=== PATIENT | female | born 1935 | race Caucasian/White ===

== ENCOUNTER 2019-01-01 13:50 | Emergency (ER) | payer OTHER, MEDICARE ==
[2019-01-01 13:56] VITALS: TEMP 97.5; BMI 21.6
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
[2019-01-01 18:28] VITALS: BP 120/70; PULSE 53
== END 2019-01-01 18:29 | disposition home or self-care (01) ==
LOC: FER 13:50
DX: R51 Headache (principal); I48.91 Unspecified atrial fibrillation; Z79.01 Long term (current) use of anticoagulants; Z87.891 Personal history of nicotine dependence
CPT/HCPCS: 70551-TC; 99282-25

== ENCOUNTER 2020-05-01 19:59 | Emergency (ER) | payer OTHER, MEDICARE ==
[2020-05-01 20:20] VITALS: BP 159/88; PULSE 57; TEMP 97.5; BMI 22.2
[2020-05-01] MEDS ORDERED: CEPHALEXIN MONOHYDRATE 500 MG CAPSULE (UD) PO ONE (22:19)
[2020-05-01] MEDS ORDERED: CEPHALEXIN MONOHYDRATE 500 MG CAPSULE (UD) ONE (22:31)
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
== END 2020-05-01 22:41 | disposition home or self-care (01) ==
LOC: FER 19:59
DX: L03.115 Cellulitis of right lower limb (principal); L08.9 Local infection of the skin and subcutaneous tissue, unspecified
CPT/HCPCS: 93971-TC; 99284-25